=== PATIENT | female | born 1980 | race African-American/Black ===

== ENCOUNTER 2017-11-19 13:08 | Emergency (ER) | payer MEDICAID, OTHER ==
[~2017-11-19] VITALS: Ht 162.6 cm; Wt 81.0 kg
[2017-11-19] MEDS ORDERED: SODIUM CHLORIDE 0.9% 1,000 ML IV ONE (13:50)
[2017-11-19 14:19] LABS: BASOPHILS % 0.4 % (0.0-2.0); EOSINOPHILS % 3.3 % (0.0-5.0); HEMATOCRIT. 34.9 % (36.0-48.0); HEMOGLOBIN. 11.5 g/dL (12.0-16.0); LYMPHOCYTES % 26.4 % (20.0-50.0); MEAN CORPUSCULAR HEMOGLOBIN 29.1 pg (28.0-32.0); MEAN CORPUSCULAR VOLUME 87.9 fL (81.0-99.0); MEAN PLATELET VOLUME 8.8 fl (7.4-10.4); MONOCYTES % 7.2 % (2.0-8.0); NEUTROPHILS % 62.7 % (40.0-76.0); PLATELET 247 x1000/uL (130-400); RED BLOOD CELL COUNT 3.97 mill/uL (4.2-5.4); RED CELL DISTRIBUTION WIDTH 13.8 % (11.6-14.6)
[2017-11-19 14:27] LABS: PROTHROMBIN TIME 10.5 sec (9.4-11.6)
[2017-11-19 14:28] LABS: CLARITY URINE CLEAR (CLEAR); COLOR URINE YELLOW (YELLOW); KETONES URINE TRACE (NEGATIVE); LEUKOCYTE ESTERASE URINE NEGATIVE (NEGATIVE); NITRITE URINE POSITIVE (NEGATIVE); OCCULT BLOOD URINE 3+ (NEGATIVE); PH URINE 5.5 (4.5-8.0); PROTEIN URINE NEGATIVE (NEGATIVE); SPECIFIC GRAVITY URINE 1.035 (1.005-1.030)
[2017-11-19 14:32] LABS: CHLORIDE 106 mEq/L (98-107)
[2017-11-19 14:38] LABS: TROPONIN I < 0.02 ng/mL (0.00-0.04)
[2017-11-19 15:00] LABS: HCG SCREEN NEGATIVE
[2017-11-19 17:36] VITALS: BP 129/74
== END 2017-11-19 17:38 | disposition home or self-care (01) ==
LOC: ER 13:25
DX: N39.0 Urinary tract infection, site not specified (principal); R42 Dizziness and giddiness; R79.1 Abnormal coagulation profile
CPT/HCPCS: 36415; 71045; 80053; 81003; 83880; 84484; 84703; 85025; 85610; 93005; 96360; 99285; J7030; Z7610